=== PATIENT | male | born 1980 | race African-American/Black ===

== ENCOUNTER 2016-08-22 13:16 | Emergency (ER) | payer SELFPAY ==
--- NOTE | 2016-08-22 13:32 | ER Document Report ---
ED Medical Screen (RME) - General Stated Complaint: FLANK PAIN Notes: 36 yo male c/o right lateral side pain x several months. + nausea, occasional vomiting. no aggrevating or alleviating. no fever. + ETOH daily - Related Data Allergies/Adverse Reactions: No Known Allergies Allergy (Unverified 08/22/16 13:27) Physical Exam - Vital signs Vitals: Temp Pulse Resp BP Pulse Ox 98.4 F 93 20 131/73 H 100 08/22/16 13:21 08/22/16 13:21 08/22/16 13:21 08/22/16 13:21 08/22/16 13:21 Course - Vital Signs Vital signs: Temp Pulse Resp BP Pulse Ox 98.4 F 93 20 131/73 H 100 08/22/16 13:21 08/22/16 13:21 08/22/16 13:21 08/22/16 13:21 08/22/16 13:21
[2016-08-22 13:56] LABS: ABSOLUTE BASOPHILS # (AUTO) 0.1 10^3/uL (0.0-0.2); ABSOLUTE EOSINOPHILS # (AUTO) 0.1 10^3/uL (0.0-0.6); ABSOLUTE LYMPHOCYTES (AUTO) 1.6 10^3/uL (0.5-4.7); ABSOLUTE MONOCYTES (AUTO) 0.5 10^3/uL (0.1-1.4); BASOPHILS % (AUTO) 0.9 % (0-2); EOSINOPHILS % (AUTO) 2.3 % (0-6); HEMATOCRIT 44.7 % (37.9-51.0); HGB HCT DIFFERENCE 0.3; LYMPHOCYTES % (AUTO) 25.4 % (13-45); MEAN CORPUSCULAR HEMOGLOBIN 28.5 pg (27.0-33.4); MEAN CORPUSCULAR HGB CONC 33.5 g/dL (32.0-36.0); MEAN CORPUSCULAR VOLUME 85 fl (80-97); MONOCYTES % (AUTO) 8.5 % (3-13); RED BLOOD COUNT 5.25 10^6/uL (4.35-5.55); RED CELL DISTRIBUTION WIDTH 13.3 % (11.5-14.0); SEGMENTED NEUTROPHILS % (AUTO) 62.9 % (42-78); WHITE BLOOD COUNT 6.3 10^3/uL (4.0-10.5)
[2016-08-22 14:10] LABS: APPEARANCE,URINE CLEAR; BILIRUBIN,URINE NEGATIVE (NEGATIVE); GLUCOSE, URINE NEGATIVE (NEGATIVE); KETONES,URINE NEGATIVE (NEGATIVE); LEUKOCYTE ESTERASE,URINE NEGATIVE (NEGATIVE); NITRITE,URINE NEGATIVE (NEGATIVE); PROTEIN,URINE NEGATIVE (NEGATIVE); URINE SPECIFIC GRAVITY 1.029; UROBILINOGEN,URINE NEGATIVE mg/dL (<2.0)
[2016-08-22 14:12] LABS: ALANINE AMINOTRANSFERASE 30 U/L (21-72); ALBUMIN 4.8 g/dL (3.5-5.0); ALKALINE PHOSPHATASE 84 U/L (38-126); ANION GAP 15 (5-19); ASPARTATE AMINO TRANSFERASE 24 U/L (17-59); BILIRUBIN,TOTAL 0.7 mg/dL (0.2-1.3); BLOOD UREA NITROGEN 12 mg/dL (7-20); CARBON DIOXIDE 26 mmol/L (22-30); CHLORIDE 101 mmol/L (98-107); CREATININE RESULT 1.38 mg/dL (0.52-1.25); GLUCOSE 93 mg/dL (75-110); LIPASE 163.9 U/L (23-300); POTASSIUM 4.5 mmol/L (3.6-5.0); SODIUM 142.2 mmol/L (137-145)
[2016-08-22] MEDS ORDERED: NORMAL SALINE 1000 ML 1,000 ML IV PRN (14:26)
--- NOTE | 2016-08-22 14:26 | ER Document Report ---
ED General - General Chief Complaint: Abdominal Pain Stated Complaint: FLANK PAIN Time seen by provider: 14:25 Mode of Arrival: Ambulatory Information source: Patient Notes: This is a 46-year-old man that denies any prior medical problems who presents to the emergency room with right sided abdomen and flank pain. Patient denies any blood in the urine. He denies constipation, diarrhea, nausea or vomiting. He states that the pain comes and goes and his been experiencing it for a long time. He denies any weight loss. He denies any fever. He denies smoking. He states he does drink on the weekends and every other day. TRAVEL OUTSIDE OF THE [place] IN LAST 30 DAYS: No - HPI Onset: Last week Onset/Duration: Gradual Quality of pain: Dull Severity: Moderate Pain Level: 2 Associated symptoms: denies: Chest pain, Chills, Fever, Shortness of breath Exacerbated by: Denies Relieved by: Denies Similar symptoms previously: Yes Recently seen / treated by doctor: No - Related Data Allergies/Adverse Reactions: No Known Allergies Allergy (Unverified 08/22/16 13:27) Past Medical History - General Information source: Patient - Social History Smoking Status: Current Every Day Smoker Cigarette use (# per day): Yes - 1 pack per day Chew tobacco use (# tins/day): No Frequency of alcohol use: Heavy Drug Abuse: None Lives with: Family Family History: Reviewed & Not Pertinent Patient has suicidal ideation: No Patient has homicidal ideation: No - Medical History Medical History: Negative Renal/ Medical History: Denies: Hx Peritoneal Dialysis Surgical Hx: Negative Review of Systems - Review of Systems Notes: Review of systems: Constitutional: Denies fever, chills. EENT: Denies ear pain, sinus tenderness, throat pain, throat swelling. Cardiovascular: Denies chest pain, palpitations, dyspnea or edema. Respiratory: Denies wheezing, cough, hemoptysis. Abdomen: See H&P Genitourinary: Denies dysuria, pyuria, hematuria, flank pain. Musculoskeletal: denies joint pain or swelling, denies back pain. Neurologic: Denies headache, photophobia, neck stiffness, weakness. Denies loss of bowel or bladder function. Denies saddle anesthesia. Skin: Denies rash, lesions. Physical Exam - Vital signs Vitals: Temp Pulse Resp BP Pulse Ox 98.4 F 93 20 131/73 H 100 03/01/17 13:21 08/22/16 13:21 08/22/16 13:21 08/22/16 13:21 08/22/16 13:21 Notes: Physical exam: GENERAL: 36-year-old man, alert and oriented 3, no acute distress HEAD: Atraumatic, normocephalic. EYES: Pupils equal round and reactive to light, extraocular movements intact, sclera anicteric, conjunctiva are normal. ENT: TMs normal, nares patent, oropharynx clear without exudates. Moist mucous membranes. NECK: Normal range of motion, supple without lymphadenopathy or JVD. LUNGS: Breath sounds clear to auscultation bilaterally and equal. No wheezes rales or rhonchi. HEART: Regular rate and rhythm without murmurs, rubs or gallops. ABDOMEN: Soft, normoactive bowel sounds. Mild mid right abdominal tenderness. No guarding, no rebound. No masses appreciated. No Yu's sign, no pain at McBurney's point. EXTREMITIES: Normal range of motion, no pitting or edema. No clubbing or cyanosis. NEUROLOGICAL: Cranial nerves II through XII grossly intact. Normal speech, normal gait. PSYCH: Normal mood, normal affect. SKIN: Warm, Dry, normal turgor, no rashes or lesions noted. Course - Vital Signs Vital signs: Temp Pulse Resp BP Pulse Ox 98.5 F 64 18 126/89 H 99 08/22/16 16:29 08/22/16 16:29 08/22/16 16:29 08/22/16 16:29 08/22/16 16:29 - Laboratory Result Diagrams: 08/22/16 13:35 08/22/16 13:35 Laboratory results interpreted by me: 08/22/16 08/22/16 13:35 13:35 Plt Count 481 H Creatinine 1.38 H Est GFR (Non-Af Amer) 59 L Total Protein 9.0 H - Diagnostic Test Radiology reviewed: Image reviewed, Reports reviewed - CT of the abdomen shows no acute intra-abdominal process Discharge - Discharge Clinical Impression: abdominal pain Condition: Stable Disposition: HOME, SELF-CARE Instructions: Abdominal Pain ([facility]) Additional Instructions: Please note: Many disease processes evolve over time and the ER visit offers only a brief assessment. This is why it is important that you: 1. Take the medicine as prescribed for the next 2 weeks. 2. Stop all alcohol for the next 2 weeks. 3. Try probiotics: Activia or Hoopa yogurt sold next to the [employer] and [employer]: Try one daily the next 2 weeks. 4. Follow-up with a GI doctor: I left the number for Dr. Peace 5. Drink plenty of fluids, return to the emergency room for worsening pain, blood in the stool, pain moving to the right lower side or any concerns he getting worse. Prescriptions: Omeprazole Magnesium [Prilosec Otc] 20 mg PO DAILY #20 tablet.dr Referrals: CHARU PEACE MD [ACTIVE STAFF] - Follow up as needed (This is the number for the GI doctor)
[2016-08-22 16:31] VITALS: BP 126/89
== END 2016-08-22 16:29 | disposition home or self-care (01) ==
LOC: ER 13:16
DX: R10.9 Unspecified abdominal pain (principal); F17.210 Nicotine dependence, cigarettes, uncomplicated; R11.0 Nausea; Z72.89 Other problems related to lifestyle
CPT/HCPCS: 99284; 96360; 36415; 83690; 85025; 80053; 81001; 74177; J7030

== ENCOUNTER 2017-11-04 07:51 | Emergency (ER) | payer SELFPAY ==
[2017-11-04] MEDS ORDERED: NORMAL SALINE 1000 ML 1,000 ML IV ONE (08:04)
[2017-11-04] MEDS ORDERED: IBUPROFEN 800 MG TABLET PO ONE (08:04)
--- NOTE | 2017-11-04 08:05 | ER Document Report ---
ED General - General Stated Complaint: WEAKNESS Time Seen by Provider: 11/04/17 07:58 Notes: Patient is a 37-year-old male who is in the emergency part of the chief complaint of weakness, not feeling well, nonproductive cough. Patient states he woke up this morning did not feel well laid on the floor and called 911. States he felt unwell after work on saturday better yesterday and then felt weak this AM. Per EMS report his roommate/boss states that he has happened 3 times in the past. Patient denies any medical history but on EMS reports there is a report of hyperglycemia. Patient states that he has been diagnosed with prediabetes but does not follow with a primary care doctor regarding this. Patient does not take any medications. He is a non-smoker. Did not receive a flu vaccine this year TRAVEL OUTSIDE OF THE [place] IN LAST 30 DAYS: No - Related Data Allergies/Adverse Reactions: No Known Allergies Allergy (Unverified 08/22/16 13:27) Past Medical History - Social History Smoking Status: Never Smoker Family History: Reviewed & Not Pertinent Renal/ Medical History: Denies: Hx Peritoneal Dialysis Review of Systems - Review of Systems Constitutional: See HPI EENT: No symptoms reported Cardiovascular: No symptoms reported Respiratory: See HPI Gastrointestinal: No symptoms reported Musculoskeletal: No symptoms reported -: Yes All other systems reviewed and negative Physical Exam - Vital signs Vitals: Temp Resp Pulse Ox 98.7 F 16 100 11/04/17 07:55 11/04/17 07:55 11/04/17 07:55 - Notes Notes: PHYSICAL EXAM GENERAL: Alert, interacts well. HEAD: Normocephalic, atraumatic. EYES: Pupils equal, round, and reactive to light. Extraocular movements intact. ENT: Oral mucosa moist, tongue midline. NECK: Full range of motion. Supple. Trachea midline. LUNGS: Clear to auscultation bilaterally, no wheezes, rales, or rhonchi. No respiratory distress. HEART: Regular rate and rhythm. No murmurs, gallops, or rubs. ABDOMEN: Soft, nondistended, nontender. No guarding, rebound, or rigidity.. Bowel sounds present in all 4 quadrants. EXTREMITIES: Moves all 4 extremities spontaneously. No edema, radial and dorsalis pedis pulses 2/4 bilaterally. No cyanosis. NEUROLOGICAL: Alert and oriented x4. Normal speech. PSYCH: Normal affect, normal mood. SKIN: Warm, dry, normal turgor. No rashes or lesions noted. Course - Re-evaluation Re-evalutation: 11/04/17 09:41 Patient is a 37-year-old male who is seen in the stable, no acute distress afebrile. CBC without evidence of leukocytosis or anemia. Chemistry with mild elevation in creatinine 1.33 with the previous labs to compare with. BUN is not elevated. No evidence of hyperkalemia. No evidence of rhabdo given normal CK and clean urinalysis. Patient tolerating p.o. without any difficulty. Patient states that he is feeling a little better after IV fluids. At this time there is no indication for additional imaging or laboratory studies. Will discharge patient home with encouragement for conservative management encourage p.o. intake of fluids. To follow-up with primary care. Patient agrees with plan stable for discharge - Vital Signs Vital signs: Temp Pulse Resp BP Pulse Ox 98.7 F 18 128/90 H 100 11/04/17 07:55 11/04/17 08:34 11/04/17 08:34 11/04/17 08:34 - Laboratory Result Diagrams: 11/04/17 08:15 11/04/17 08:15 Laboratory results interpreted by me: 11/04/17 11/04/17 08:15 09:15 Carbon Dioxide 32 H Creatinine 1.33 H Urine Urobilinogen 2.0 H - Diagnostic Test Radiology reviewed: Image reviewed, Reports reviewed - EKG Interpretation by [place] EKG shows normal: Sinus rhythm Rate: Normal Rhythm: NSR, Other - nonspecific peaked T waves in leads V2 V3 Discharge - Discharge Clinical Impression: Weakness Condition: Good Disposition: HOME, SELF-CARE Instructions: Viral Syndrome ([facility]), Intravenous (IV) Fluids ([facility]) Forms: Return to Work Referrals: JOSE FUNK MD [COMMUNITY BASED STAFF] - Follow up in 1 week
[2017-11-04] MEDS ORDERED: ACETAMINOPHEN SOLN 325 MG/10.15 ML UDCUP PO ONE (08:09)
[2017-11-04 08:34] LABS: ABSOLUTE EOSINOPHILS # (AUTO) 0.2 10^3/uL (0.0-0.6); ABSOLUTE MONOCYTES (AUTO) 0.6 10^3/uL (0.1-1.4); ABSOLUTE NEUT (AUTO) 4.6 10^3/uL (1.7-8.2); BASOPHILS % (AUTO) 0.7 % (0-2); EOSINOPHILS % (AUTO) 2.9 % (0-6); HEMATOCRIT 43.8 % (37.9-51.0); HEMOGLOBIN 14.5 g/dL (13.5-17.0); LYMPHOCYTES % (AUTO) 15.1 % (13-45); MEAN CORPUSCULAR HEMOGLOBIN 28.5 pg (27.0-33.4); MEAN CORPUSCULAR HGB CONC 33.2 g/dL (32.0-36.0); MEAN CORPUSCULAR VOLUME 86 fl (80-97); PLATELET COUNT 425 10^3/uL (150-450); RED BLOOD COUNT 5.11 10^6/uL (4.35-5.55); RED CELL DISTRIBUTION WIDTH 13.8 % (11.5-14.0); SEGMENTED NEUTROPHILS % (AUTO) 72.3 % (42-78); TOTAL CELLS COUNTED % (AUTO) 100 %; WHITE BLOOD COUNT 6.3 10^3/uL (4.0-10.5)
--- NOTE | 2017-11-04 08:48 | RADIOLOGY REPORT (SQ) ---
EXAM DESCRIPTION: CHEST 2 VIEWS COMPLETED DATE/TIME: 11/04/2017 8:33 am REASON FOR STUDY: cough COMPARISON: None. EXAM PARAMETERS: NUMBER OF VIEWS: two views TECHNIQUE: Digital Frontal and Lateral radiographic views of the chest acquired. RADIATION DOSE: NA LIMITATIONS: none FINDINGS: LUNGS AND PLEURA: No opacities, masses or pneumothorax. No pleural effusion. MEDIASTINUM AND HILAR STRUCTURES: No masses or contour abnormalities. HEART AND VASCULAR STRUCTURES: Heart normal size. No evidence for failure. BONES: No acute findings. HARDWARE: None in the chest. OTHER: No other significant finding. IMPRESSION: NO ACUTE RADIOGRAPHIC FINDING IN THE CHEST. TECHNICAL DOCUMENTATION: JOB ID: [id number] [employer]- All Rights Reserved Reading location - IP/workstation name: [email or web address]
[2017-11-04 08:57] LABS: ALANINE AMINOTRANSFERASE 29 U/L (21-72); ALBUMIN 4.3 g/dL (3.5-5.0); ALKALINE PHOSPHATASE 68 U/L (38-126); ANION GAP 9 (5-19); ASPARTATE AMINO TRANSFERASE 18 U/L (17-59); BILIRUBIN,DIRECT 0.2 mg/dL (0.0-0.4); BILIRUBIN,TOTAL 0.5 mg/dL (0.2-1.3); BLOOD UREA NITROGEN 11 mg/dL (7-20); CALCIUM 9.6 mg/dL (8.4-10.2); CARBON DIOXIDE 32 mmol/L (22-30); CHLORIDE 102 mmol/L (98-107); GLUCOSE 100 mg/dL (75-110); POTASSIUM 4.5 mmol/L (3.6-5.0)
[2017-11-04 09:36] LABS: APPEARANCE,URINE CLEAR; BILIRUBIN,URINE NEGATIVE (NEGATIVE); COLOR,URINE YELLOW; GLUCOSE, URINE NEGATIVE (NEGATIVE); KETONES,URINE NEGATIVE (NEGATIVE); LEUKOCYTE ESTERASE,URINE NEGATIVE (NEGATIVE); NITRITE,URINE NEGATIVE (NEGATIVE); PROTEIN,URINE NEGATIVE (NEGATIVE); URINE SPECIFIC GRAVITY 1.016
[2017-11-04 10:12] VITALS: BP 122/83
--- NOTE | 2017-11-04 20:07 | EKG REPORT ---
SEVERITY:- NORMAL ECG - SINUS RHYTHM ST ELEV, PROBABLE NORMAL EARLY REPOL PATTERN : Confirmed by: Frank Shi 04-Nov-2017 20:06:46
== END 2017-11-04 10:12 | disposition home or self-care (01) ==
LOC: ER 07:51
DX: R53.1 Weakness (principal); R05 Cough
CPT/HCPCS: 93005; 99285; 96360; 36415; 82962; 82550; 85025; 80053; 81001; 71046; 93010; J7030; J3490